=== PATIENT | female | born 1980 | race Caucasian/White ===

== ENCOUNTER 2022-02-06 13:08 | Day surgery (SDC) | payer BC ==
[~2022-02-06 13:08] MED LIST: Midazolam 1 MG/ML 2 ML SDV ONE; Propofol 200 MG/20 ML SDV ONE; Sodium Chloride 0.9% 10 ML Syringe FLUSH PRN
[2022-02-06] MEDS: Lactated Ringers 1,000 ML IV SCH (14:40)
[2022-02-06] MEDS ORDERED: Midazolam 1 MG/ML 2 ML SDV ONE ×2 (15:25→15:29)
[2022-02-06] MEDS ORDERED: Propofol 200 MG/20 ML SDV ONE (15:29)
[2022-02-06 17:51] VITALS: BP 132/93; PULSE 73
== END 2022-02-06 16:55 | disposition home or self-care (01) ==
LOC: LL.SDS 13:08
PROVIDERS: ATTEND Surgery
DX: R19.7 Diarrhea, unspecified (principal); I10 Essential (primary) hypertension; F17.200 Nicotine dependence, unspecified, uncomplicated; J45.909 Unspecified asthma, uncomplicated; Z83.79 Family history of other diseases of the digestive system
CPT/HCPCS: 00811; J2250; J2704; J7120

== ENCOUNTER 2022-12-18 11:38 | Emergency (ER) | payer BC, MEDICAID ==
[2022-12-18] MEDS ORDERED: Aspirin 81 MG Tab.Chew PO ONE (11:46)
[2022-12-18] MEDS ORDERED: Nitroglycerin 0.4 MG Tab.SL SL ONE ×3 (12:22→13:15)
[2022-12-18 12:51] LABS: CORONAVIRUS COVID-19 NAA NEGATIVE (NEGATIVE); RESPIRATORY SYNCYTIAL VIR NAA NEGATIVE (NEGATIVE)
[2022-12-18 13:02] LABS: PTT,PARTIAL THROMBOPLSTIN TIME 25.3 SEC (23.6-29.8)
[2022-12-18] MEDS ORDERED: Iopamidol 755 Mg/ML 100 ML Bottle IVPUSH ONE (13:20)
[2022-12-18 13:38] LABS: ANION GAP 10.7 meq/L (7-15); CHLORIDE,CL 103 mmol/L (98-107); SODIUM,NA 141 mmol/L (136-145)
[2022-12-18 13:45] LABS: ESTIMATED GFR 91 mL/min (>=60)
[2022-12-18] MEDS ORDERED: HYDROmorphone 0.5 MG/0.5 ML Syringe IVPUSH ONE ×2 (15:24→16:33)
[2022-12-18] MEDS: Sodium Chloride 0.9% 10 ML Syringe FLUSH PRN ×4 (15:37→16:47)
[2022-12-18] MEDS ORDERED: methylPREDNISolone Sodium Succinate 125 MG/2 ML SDV IV ONE (16:00)
== END 2022-12-18 17:14 | disposition home or self-care (01) ==
LOC: LL.ED 11:38
DX: R07.2 Precordial pain (principal); R06.02 Shortness of breath; I10 Essential (primary) hypertension; Z88.2 Allergy status to sulfonamides; Z88.8 Allergy status to other drugs, medicaments and biological substances; Z91.048 Other nonmedicinal substance allergy status; Z88.1 Allergy status to other antibiotic agents; Z91.040 Latex allergy status; Z79.899 Other long term (current) drug therapy; Z20.822 Contact with and (suspected) exposure to COVID-19
CPT/HCPCS: 0241U; 36415; 71045; 71275; 80053; 83735; 83880; 84100; 84443; 84484; 85025; 85379; 85610; 85730; 86140; 93005; 96374; 96375; 96376; 99285; A9270; J1170; J2930; J3490; Q9967

== ENCOUNTER 2025-05-29 09:50 | Emergency (ER) | payer BC, MEDICAID ==
[2025-05-29 10:17] LABS: BASOPHILS ABSOLUTE AUTO 0.04 K/uL (0.00-0.20); BASOPHILS PERCENT AUTO 0.6 % (0.0-2.0); EOSINOPHILS ABSOLUTE AUTO 0.32 K/uL (0.00-0.50); EOSINOPHILS PERCENT AUTO 5.1 % (0.0-5.0); HEMATOCRIT 43.5 % (34.0-46.0); HEMOGLOBIN 14.8 g/dL (11.7-15.5); IMMATURE GRAN ABSOLUTE AUTO 0.02 10^3/uL (0.00-0.04); IMMATURE GRAN PERCENT AUTO 0.3 % (0.0-0.4); LYMPHOCYTES ABSOLUTE AUTO 2.23 K/uL (0.50-3.50); LYMPHOCYTES PERCENT AUTO 35.6 % (10.0-50.0); MEAN CORPUSCULAR HEMOGLOBIN 31.7 pg (28.2-33.3); MEAN CORPUSCULAR VOLUME 93.1 fL (84.0-98.0); MONOCYTES ABSOLUTE AUTO 0.84 K/uL (0.00-1.00); MONOCYTES PERCENT AUTO 13.4 % (2.0-14.0); NEUTROPHILS ABSOLUTE AUTO 2.81 K/uL (1.40-7.00); PLATELET COUNT,PLT 266 K/uL (150-350); RED BLOOD CELL COUNT 4.67 M/uL (3.77-5.09); RED CELL DISTRIBUTION WIDTH 12.7 % (11.2-14.1); WHITE BLOOD CELL COUNT,WBC 6.3 K/uL (4.0-10.2)
[2025-05-29] MEDS: Sodium Chloride 0.9% 1,000 ML IV ONE ×2 (10:23→12:11)
[2025-05-29] MEDS: fentaNYL 50 MCG/ML SDV IVPUSH ONE (10:28)
[2025-05-29] MEDS: Ondansetron 4 MG/2 ML SDV IVPUSH ONE (10:29)
[2025-05-29] MEDS: Sodium Chloride 0.9% 10 ML Syringe FLUSH PRN (10:30)
[2025-05-29 10:40] LABS: ALANINE AMINOTRANSFERASE,ALT 31 U/L (12-78); ALBUMIN 3.8 g/dL (3.4-5.0); ALKALINE PHOSPHATASE 58 IU/L (46-116); ANION GAP 13.4 meq/L (7-15); ASPARTATE AMNIOTRANSFERASE,AST 16 U/L (15-37); BILIRUBIN TOTAL 0.6 mg/dL (0.2-1.0); BLOOD UREA NITROGEN,BUN 12 mg/dL (7-18); CALCIUM 9.2 mg/dL (8.5-10.1); CARBON DIOXIDE,CO2 23.6 mmol/L (21.0-32.0); CHLORIDE,CL 105 mmol/L (98-107); CREATININE 0.93 mg/dL (0.51-1.17); ESTIMATED GFR 79 mL/min (>=60); GLUCOSE RANDOM 138 mg/dL (70-99); POTASSIUM,K 3.7 mmol/L (3.5-5.1); PROTEIN TOTAL,TP 6.9 g/dL (6.4-8.2); SODIUM,NA 142 mmol/L (136-145)
[2025-05-29] MEDS: Ketorolac 15 MG/ML SDV IVPUSH ONE (11:26)
[2025-05-29 12:02] LABS: APPEARANCE,URINE CLOUDY; BILIRUBIN,URINE NEGATIVE (NEGATIVE); COLOR,URINE DARK YELLOW; GLUCOSE,URINE NEGATIVE (NEGATIVE); KETONES,URINE NEGATIVE (NEGATIVE); LEUKOCYTE ESTERASE,URINE NEGATIVE (NEGATIVE); NITRITE,URINE NEGATIVE (NEGATIVE); OCCULT BLOOD,URINE LARGE (NEGATIVE); PH,URINE 5.5 (5.0-9.0); PROTEIN,URINE 30 mg/dL (NEGATIVE); UROBILINOGEN,URINE 0.2 E.U./dL (0.2-1.0)
[2025-05-29 12:05] LABS: AMORPHOUS SEDIMENT,URINE FEW /HPF (0/HPF); BACTERIA,URINE FEW /HPF (NONE TO FEW); EPITHELIAL CELLS,URINE MODERATE /LPF; MUCUS,URINE FEW /LPF (NEGATIVE); RBC,URINE >100 /HPF; WBC,URINE 0-5 /HPF
[2025-05-29] MEDS: Tamsulosin 0.4 MG Cap.ER PO ONE (12:11)
== END 2025-05-29 13:30 | disposition home or self-care (01) ==
LOC: LL.ED 09:50
DX: N13.2 Hydronephrosis with renal and ureteral calculous obstruction (principal); I10 Essential (primary) hypertension; Z88.1 Allergy status to other antibiotic agents; Z88.2 Allergy status to sulfonamides; Z88.5 Allergy status to narcotic agent; Z91.040 Latex allergy status; Z91.048 Other nonmedicinal substance allergy status; Z79.899 Other long term (current) drug therapy; Z90.49 Acquired absence of other specified parts of digestive tract; Z90.710 Acquired absence of both cervix and uterus
CPT/HCPCS: 74022; 74176; 80053; 81001; 83605; 83735; 84484; 85025; 93005; 93010; 96361; 96374; 96375; 99284; 99284-25; A9270-GY; J1885; J2405; J3010; J7030